=== PATIENT | female | born 1965 | race Caucasian/White ===

== ENCOUNTER → 2016-06-17 | Day surgery (SDC) | payer OTHER ==
[~2016-06-17] MED LIST: ABREVA CREAM; ACIPHEX20 MG PO; AMANTADINE HCL100 MG PO; AMBIEN PO; AMLODIPINE BESYL5 MG PO; ANTIVERT PO; ASPIRINEC PO; ATARAX PO; AUBAGIO14 MG PO; BACLOFEN10 MG PO; BUTALB-APAP-CA1 EACH; CALCIUM PLUS VIT D PO; CERTAGEN PO; CLOTRIMAZOLE15 GM TP; COL-RITE50 MG PO; CYMBALTA PO; DEXAMETHASONE4 MG PO; DIAZEPAM PO; DIAZEPAM10 MG PO; DITROPAN5 MG PO; DOXYCYCLINE PO; EFFEXOR-XR75 MG PO; EFFEXOR75 M1 PO; EFFEXOR75 M2 PO; FERROUS SULFATE PO; FINGOLIMOD PO; FLEXERIL10 M1 PO; HCTZ; HYDROCHLOROTHIA25 MG PO; HYDROXYZINE HCL25 M1 PO; IBUPROFEN PO; IBUPROFEN800 MG PO; IMMUNOGLOBULIN IV; KEFLEX PO; KLONOPIN PO; LASIX; LEVOFLOXACIN500 MG PO; LYRICA PO; METOPROLOL PO; MS CONTIN30 MG PO; NAMENDA10 MG PO; NEURONTIN PO; NORVASC PO; NYSTATIN-TRIAMC15 G1 TP; OMEPRAZOLE40 MG PO; PHENERGAN25 M1 PO; PHENERGAN25 MG PO; POSTURE600 MG PO; PREDNISONE50 MG PO; PRILOSEC20 M1 PO; PRISTIQ50 MG PO; PROPRANOLOL HCL10 MG PO; RITALIN10 MG PO; SAVELLA100 MG PO; SOMA PO; STOOL SOFTENER PO; TOPAMAX PO; TYLENOL PM EX-S1 TA4 PO; VALIUM10 MG PO; VITAMIN D50000 UNIT PO; VOLTAREN75 MG PO; ZOFRANODT PO; [UNRECOGNIZED DRUG - OTHER]; [UNRECOGNIZED DRUG - OTHER] PO; [UNRECOGNIZED DRUG - SUPPLY] IM
--- NOTE | ~2016-06-17 | OR ---
Unit #: [id number] #: [id number] Patient: VALENTE BEAR [id number] [address] [place], [place] [address] [id number] MR#: [id number] NAME: VALENTE BEAR ROOM: Date of Procedure: 06/17/2016 Admission Date: 06/17/2016 Surgeon: Sanford Resendez M.D. : 1965 Attending Physician: Sanford Resendez M.D. Referring Physician: Sanford Resendez M.D. Primary Care Physician: Bebo Ware M.D. OPERATIVE REPORT INDICATIONS FOR PROCEDURE Esophagogastroduodenoscopy with biopsy and colonoscopy with biopsy. INDICATIONS FOR PROCEDURE The patient with chronic diarrhea, GERD symptoms, family history of polyps, also with anal incontinence, undergoing colonoscopy and upper endoscopy for evaluation. MEDICATIONS Monitored anesthesia. POSTOPERATIVE FINDINGS 1. Small hiatal hernia, nonobstructing esophageal ring. 2. Chronic appearing gastritis, biopsies taken. 3. Duodenal biopsies taken looking for celiac disease. 4. Colonic mucosa was normal throughout, random biopsies taken. 5. Terminal ileum could not be intubated. 6. Prep was good. 7. Anal tone was good. PLAN Follow up on the pathology report. Also to check for celiac disease antibody. Further recommendations to follow. DESCRIPTION OF PROCEDURE The patient was explained of the procedure, risks, and benefits along with risks and benefits of anesthesia. She was brought to the endoscopy room. Propofol anesthesia was given. Bite block was placed. The scope was passed down the mouth into the esophagus, stomach, duodenum, and distal duodenum. Findings as described. Biopsies taken in the duodenum and gastric mucosa. Gently, the scope was pulled out. She tolerated this very well. At this time, she was turned around and repositioned for colonoscopy. Rectal exam was done, which was normal. Colonoscope was lubricated, passed up the rectum, advanced under direct vision all the way to the cecum. Cecum was identified by ileocecal valve and appendiceal orifice. Terminal ileum could not be intubated. Colonic mucosa was normal throughout. Random biopsies taken. I retroflexed in the rectum, small hemorrhoids seen. Scope was gently pulled out. She tolerated it well. No major complications were seen. Unit #: [id number] #: [id number] Patient: VALENTE BEAR Dictated by... Eligio Spears/maury TD: 06/17/2016 23:15 JOB #: [id number] OPERATIVE REPORT Page 1 of 1 X Sanford Resendez MD PROCEDURE OPERATIVE NOTE
[2016-06-17 13:52] LABS: BASOPHIL# 0.1 X10e3 (0-0.3); EOSINOPHIL# 0.3 X10e3 (0-0.7); EOSINOPHIL% 2.8 % (0.0-7.0); HEMATOCRIT 39.8 % (35.0-45.0); HEMOGLOBIN 12.7 gm/dL (12.0-16.0); LYMPHOCYTE# 1.7 X10e3 (1.0-3.5); LYMPHOCYTE% 18.1 % (17.0-45.0); MEAN CELL VOLUME 90.1 FL (83-96); MEAN CORPUSCULAR HEMOGLOBIN 28.6 PG (28-34); MEAN CORPUSCULAR HGB CONC 31.8 g/dL (30-36); MEAN PLATELET VOLUME 9.5 FL (6.5-11.5); MONOCYTE# 0.8 X10e3 (0-1.0); MONOCYTE% 8.1 % (3.0-12.0); NEUTROPHIL# 6.6 X10e3 (1.5-7.1); PLATELET COUNT 246 X10e3 (140-420); RED BLOOD COUNT 4.42 X10e (3.90-5.30); RED CELL DISTRIBUTION WIDTH 13.8 % (11.0-15.5); WHITE BLOOD COUNT 9.5 X10e3 (4.0-10.5)
[2016-06-17 13:53] LABS: DIFF IND NO
[2016-06-17 14:25] LABS: ALBUMIN SERUM 4.6 g/dL (3.5-5.0); ALKALINE PHOSPHATASE 76 U/L (32-92); ALT (SGPT) 24 U/L (10-40); AST (SGOT) 28 U/L (10-42); BILIRUBIN,TOTAL 0.6 mg/dL (0.2-2.0); BLOOD UREA NITROGEN 9 mg/dL (9-23); CALCIUM SERUM 9.5 mg/dL (8.4-10.2); CARBON DIOXIDE 25 mmol/L (22-31); CHLORIDE 107 mmol/L (100-111); CREATININE SERUM 0.9 mg/dL (0.6-1.4); GLOM FILT RATE Estimated ABOVE60 mL/min (>60); GLUCOSE FASTING 86 mg/dL (70-110); POTASSIUM 4.3 mmol/L (3.5-5.1); PROTEIN TOTAL SERUM 7.7 g/dL (6.0-8.3); SODIUM 141 mmol/L (135-145)
[2016-06-19 00:33] LABS: GLIADIN IGA AB 5 Units (<20); GLIADIN IGG AB 5 Units (<20); RETICULIN IGA SCREEN W/REFLEX Negative (Negative); TISSUE TRANSGLUTAMINASE IGA AB 1 U/mL (<4)
== END | disposition home or self-care (01) ==
LOC: COPS 10:24
PROVIDERS: Internal Medicine
DX: K52.9 Noninfective gastroenteritis and colitis, unspecified (principal); K29.50 Unspecified chronic gastritis without bleeding; K29.80 Duodenitis without bleeding; K22.2 Esophageal obstruction; K44.9 Diaphragmatic hernia without obstruction or gangrene; K64.9 Unspecified hemorrhoids; K21.9 Gastro-esophageal reflux disease without esophagitis; Z88.5 Allergy status to narcotic agent; Z88.6 Allergy status to analgesic agent; Z79.899 Other long term (current) drug therapy; Z95.4 Presence of other heart-valve replacement; Z98.42 Cataract extraction status, left eye; Z98.890 Other specified postprocedural states
CPT/HCPCS: 80053; 83516; 85025; 86140; 86255; 88305; 88312; J0290; J1580